=== PATIENT | female | born 1945 | race Caucasian/White ===

== ENCOUNTER → 2018-01-02 10:18 | Outpatient (POV) | payer MEDICARE, SELFPAY | PROVIDERS: PCP Family Medicine; Visit Provider Dermatology | DX: Z00.00 Encounter for general adult medical examination without abnormal findings (principal) ==

== ENCOUNTER → 2018-10-21 09:46 | Outpatient (POV) | payer MEDICARE, SELFPAY | PROVIDERS: Visit Provider Dermatology | DX: Z00.00 Encounter for general adult medical examination without abnormal findings (principal) ==

== ENCOUNTER → 2021-02-21 09:27 | Outpatient (POV) | payer MEDICARE, SELFPAY | PROVIDERS: Visit Provider Dermatology | DX: Z00.00 Encounter for general adult medical examination without abnormal findings (principal) ==

== ENCOUNTER → 2021-07-01 09:12 | Outpatient (CLI) | payer MEDICARE, SELFPAY ==
[2021-07-03 09:19] LABS: Adenovirus F 40/41, stool Not Detected (NotDetected); Astrovirus Not Detected (NotDetected); Campylobacter Not Detected (NotDetected); Clostridium Difficile A/B, PCR Not Detected (NotDetected); Cryptosporidium Not Detected (NotDetected); Cyclospora Cayetanesis Not Detected (NotDetected); Entamoeba histolytica Not Detected (NotDetected); Enteroaggregative E coli Not Detected (NotDetected); Enteropathogenic E coli Not Detected (NotDetected); Enterotoxigenic E coli Not Detected (NotDetected); Giardia lamblia Not Detected (NotDetected); Norovirus Not Detected (NotDetected); Plesimonas Shigalloides, PCR Not Detected (NotDetected); Rotavirus A Not Detected (NotDetected); Salmonella, PCR Not Detected (NotDetected); Sapovirus Not Detected (NotDetected); Shiga-like toxin E coli Not Detected (NotDetected); Shigella Enterovasive E coli Not Detected (NotDetected); Vibrio Cholerae Not Detected (NotDetected); Vibrio, PCR Not Detected (NotDetected); Yersinia Entercolitica, PCR Not Detected (NotDetected)
== END ==
PROVIDERS: Visit Provider Nurse Practitioner Family
DX: R19.7 Diarrhea, unspecified (principal); R15.2 Fecal urgency; R15.9 Full incontinence of feces
CPT/HCPCS: 87506

== ENCOUNTER → 2022-07-17 14:09 | Outpatient (POV) | payer MEDICARE, SELFPAY | PROVIDERS: Visit Provider Dermatology | DX: Z00.00 Encounter for general adult medical examination without abnormal findings (principal) ==

== ENCOUNTER 2024-07-14 16:03 | Outpatient (POV) | payer MEDICARE, SELFPAY | END 2024-07-14 23:59 | disposition home or self-care (01) | LOC: SC 16:04 | PROVIDERS: PCP Family Medicine; Visit Provider Dermatology | DX: Z00.00 Encounter for general adult medical examination without abnormal findings (principal) ==

== ENCOUNTER 2025-06-29 10:00 | Outpatient (RCR) | payer MEDICARE, SELFPAY | END 2025-06-29 23:59 | disposition home or self-care (01) | LOC: PT.CARL 10:00 | PROVIDERS: PCP Family Medicine; Visit Provider Internal Medicine | DX: C90.00 Multiple myeloma not having achieved remission (principal); M89.8X9 Other specified disorders of bone, unspecified site | CPT/HCPCS: 97110; 97112; 97162; 97530 ==

== ENCOUNTER 2025-07-27 09:00 | Outpatient (RCR) | payer MEDICARE, SELFPAY | END 2025-07-27 23:59 | disposition home or self-care (01) | LOC: PT.CARL 09:00 | PROVIDERS: PCP Family Medicine; Visit Provider Family Medicine | DX: R26.9 Unspecified abnormalities of gait and mobility (principal) | CPT/HCPCS: 97110; 97112; 97140; 97530 ==

== ENCOUNTER 2025-08-10 09:00 | Outpatient (RCR) | payer MEDICARE, SELFPAY | END 2025-08-16 10:16 | disposition home or self-care (01) | LOC: PT.CARL 09:00 | PROVIDERS: PCP Family Medicine; Visit Provider Family Medicine | DX: C90.00 Multiple myeloma not having achieved remission (principal); M89.9 Disorder of bone, unspecified; R26.9 Unspecified abnormalities of gait and mobility | CPT/HCPCS: 97110; 97530 ==